=== PATIENT | female | born 1990 | race African-American/Black ===

== ENCOUNTER 2021-10-13 14:22 | Emergency (ER) | payer SELFPAY ==
[~2021-10-13] VITALS: Ht 170.2 cm; Wt 63.5 kg
--- NOTE | 2021-10-13 14:24 | NUR ---
Patient BIBA to bed 8.
[2021-10-13 14:29] VITALS: BP 112/58
--- NOTE | 2021-10-13 14:32 | NUR ---
PATIENT PROVIDED W/ FOOD AT BEDSIDE
--- NOTE | 2021-10-13 14:35 | NUR ---
PATIENT REFUSED URINE SAMPLE AT THIS TIME. DR BRAR MADE AWARE.
--- NOTE | 2021-10-13 14:36 | NUR ---
PATIENT PROVIDED W/ WATER AND WARM BLANKETS AT BEDSIDE. ALL PATIENT NEEDS MET AT THIS TIME.
--- NOTE | 2021-10-13 14:38 | NUR ---
PATIENT PROVIDED WITH CLOTHES AT THIS TIME
[2021-10-13] MEDS ORDERED: LORazepam 2 MG/ML VIAL IM ONE ×2 (14:45→15:05)
[2021-10-13] MEDS ORDERED: HALOPERIDOL IM 5 MG/ML VIAL IM ONE ×2 (14:45→15:05)
[2021-10-13 15:03] LABS: BASOPHILS % (AUTO) 0.6 % (0.0-2.0); EOSINOPHILS # (AUTO) 0.1 K/uL (0-0.4); EOSINOPHILS % (AUTO) 1.5 % (0.0-4.0); HEMATOCRIT 30.5 % (36-48); HEMOGLOBIN 10.3 g/dL (12.0-16.0); LYMPHOCYTES # (AUTO) 1.2 K/uL (2.5-16.5); LYMPHOCYTES % (AUTO) 27.2 % (20.5-51.1); MEAN CORPUSCULAR HEMOGLOBIN 29 pg (27-31); MEAN CORPUSCULAR HGB CONC 34 g/dL (33-37); MEAN CORPUSCULAR VOLUME 85.9 fL (80-94); MONOCYTES # (AUTO) 0.5 K/uL (0.8-1.0); MONOCYTES % (AUTO) 11.4 % (1.7-9.3); NEUTROPHILS # (AUTO) 2.7 K/uL (1.8-7.7); NEUTROPHILS % (AUTO) 59.3 % (42.2-75.2); PLATELET COUNT (AUTO) 265 K/uL (140-450); RED BLOOD CELL COUNT(AUTO) 3.56 MIL/uL (4.20-5.40); RED CELL DISTRIBUTION WIDTH 15.5 % (11.6-13.7); WHITE BLOOD COUNT (AUTO) 4.5 K/uL (4.8-10.8)
--- NOTE | 2021-10-13 15:03 | NUR ---
PATIENT SHOWS INCREASE IN AGITATION TOWARDS STAFF, EAGER TO LEAVE. DR BRAR NOTIFIED
--- NOTE | 2021-10-13 15:08 | NUR ---
PATIENT'S AGITATION INCREASES, POSTURED TOWARDS STAFF AND STATES "I WILL KILL YOU" REFUSES TO BE MEDICALLY EVALUATED AND BEGAN TO LOOK FOR EXIT ROUTES. DR BRAR MADE AWARE. PATIENT LEFT AMA WITHOUT D/C PAPERWORK.
[2021-10-13 15:12] VITALS: BP 112/58
--- NOTE | 2021-10-13 15:12 | NUR ---
The patient's care was reviewed and supervised by Pilar Membreno RN.
[2021-10-13 15:19] LABS: ANION GAP 10.3 (8-16); CARBON DIOXIDE 28.8 mmol/L (21-32); CREATININE 0.7 mg/dL (0.6-1.3); POTASSIUM 4.1 mmol/L (3.5-5.1); TOTAL BILIRUBIN 0.4 mg/dL (0.0-1.0)
== END 2021-10-13 15:08 | disposition left against medical advice (07) ==
LOC: MED 14:22
DX: R45.1 Restlessness and agitation (principal); F91.9 Conduct disorder, unspecified
CPT/HCPCS: 36415; 80053; 85025; 96372; 99284; J1630; J2060